=== PATIENT | male | born 1950 | race Caucasian/White ===

== ENCOUNTER → 2022-04-16 | Outpatient (CLI) | payer MEDICARE, BC | LOC: VAS 12:50 → RAD 13:00 | DX: I82.432 Acute embolism and thrombosis of left popliteal vein (principal); I82.412 Acute embolism and thrombosis of left femoral vein; I82.442 Acute embolism and thrombosis of left tibial vein ==

== ENCOUNTER → 2023-10-09 | Outpatient (CLI) | payer MEDICARE, BC | LOC: RAD 10:00 | DX: I82.532 Chronic embolism and thrombosis of left popliteal vein (principal); I82.512 Chronic embolism and thrombosis of left femoral vein ==